=== PATIENT | female | born 1975 | race African-American/Black ===

== ENCOUNTER 2018-07-03 05:48 | Day surgery (SDC) | payer MEDICARE, MEDICAID ==
[~2018-07-03] VITALS: Ht 154.9 cm; Wt 89.8 kg
[~2018-07-03 05:48] MED LIST: CLON0.3T4 PO; GABA-529 PO; HYDR-4005 PO; HYDR100T31 PO; INS7030 SUBCUT; PRED10TA23 PO; REN800 PO
[2018-07-03 06:48] LABS: HCG SCREEN NEGATIVE
[2018-07-03] MEDS ORDERED: SODIUM CHLORIDE 0.9% 500 ML IV NR (06:50)
[2018-07-03] MEDS ORDERED: SKIN ADHESIVE 0.7 GM EA TOP ONE (07:38)
[2018-07-03] MEDS ORDERED: BUPIVACAINE HCL 0.5% (5MG/ML) 50ML ONE (07:39)
[2018-07-03] MEDS ORDERED: LIDOCAINE HCL 1% 20ML VIAL (Pyxis) INJ ONE (07:47)
[2018-07-03] MEDS ORDERED: SODIUM BICARBONATE 4% (2.4MEQ) 5ML VIAL IV ONE (07:49)
[2018-07-03] MEDS ORDERED: METHYLENE BLUE 50 MG/10 ML AMP IV ONE (08:55)
[2018-07-03] MEDS ORDERED: NORMAL SALINE 0.9% 10 ML SYR ONE (08:56)
[2018-07-03] MEDS ORDERED: MEPERIDINE HCL/PF 25MG/ML CPJ IV PRN (09:00)
[2018-07-03] MEDS ORDERED: ONDANSETRON HCL 4MG/2ML VIAL IV PRN (09:00)
[2018-07-03] MEDS ORDERED: HYDROMORPHONE HCL/PF 2MG/ML CPJ IV PRN (09:00)
[2018-07-03] MEDS ORDERED: LABETALOL 5MG/ML SYR 20 MG/4 ML SYRINGE IV PRN (09:00)
[2018-07-03] MEDS ORDERED: IPRATROPIUM/ALBUTEROL 0.5-3(2.5)MG/3ML NEB ONE (12:11)
[2018-07-03] MEDS ORDERED: HYDROCODONE/ACETAMINOPHEN 5/325MG TABLET PO PRN (13:15)
[2018-07-03 13:30] VITALS: BP 190/103
== END 2018-07-03 14:00 | disposition home or self-care (01) ==
LOC: OR 05:48
PROVIDERS: ATTEND Surgery
DX: C50.911 Malignant neoplasm of unspecified site of right female breast (principal); I13.11 Hypertensive heart and chronic kidney disease without heart failure, with stage 5 chronic kidney disease, or end stage renal disease; E11.22 Type 2 diabetes mellitus with diabetic chronic kidney disease; N18.6 End stage renal disease; J45.909 Unspecified asthma, uncomplicated; Z98.890 Other specified postprocedural states; Z99.2 Dependence on renal dialysis; Z79.899 Other long term (current) drug therapy; Z79.4 Long term (current) use of insulin; Z83.3 Family history of diabetes mellitus; Z82.49 Family history of ischemic heart disease and other diseases of the circulatory system
CPT/HCPCS: 19281; 36415; 38500; 78195; 80048; 82962; 84703; 88307; 88309; 88331; 94002; 94640; A4216; G0168; J3490; J7040; J7620; Q9968

== ENCOUNTER 2018-07-08 08:56 | Emergency (ER) | payer MEDICARE, MEDICAID ==
[~2018-07-08] VITALS: Ht 154.9 cm; Wt 89.0 kg
[2018-07-08] MEDS ORDERED: MORPHINE SULFATE 4 MG/ML CPJ (NOT FOR IM USE) IV STA (10:18)
[2018-07-08] MEDS ORDERED: ONDANSETRON HCL 4MG/2ML VIAL IV STA (10:18)
[2018-07-08 11:05] LABS: EOSINOPHILS % 4.3 % (0.0-5.0); HEMATOCRIT. 32.5 % (36.0-48.0); HEMOGLOBIN. 10.4 g/dL (12.0-16.0); LYMPHOCYTES % 9.9 % (20.0-50.0); MEAN CORPUSCULAR HEMOGLOBIN 30.1 pg (28.0-32.0); MEAN PLATELET VOLUME 7.5 fl (7.4-10.4); MONOCYTES % 7.5 % (2.0-8.0); NEUTROPHILS % 77.3 % (40.0-76.0); PLATELET 305 x1000/uL (130-400); RED BLOOD CELL COUNT 3.46 mill/uL (4.2-5.4); RED CELL DISTRIBUTION WIDTH 17.6 % (11.6-14.6)
[2018-07-08 11:12] LABS: INR 1.1; PROTHROMBIN TIME 10.8 sec (9.1-11.1)
[2018-07-08 11:13] LABS: CHLORIDE 103 mEq/L (98-107)
[2018-07-08 11:37] LABS: HCG SCREEN NEGATIVE
[2018-07-08] MEDS ORDERED: OXYCODONE HCL/ACETAMINOPHEN 5/325MG TABLET PO ONE (13:00)
[2018-07-08 13:16] VITALS: BP 108/70
== END 2018-07-08 13:19 | disposition home or self-care (01) ==
LOC: ER 11:44
DX: G89.18 Other acute postprocedural pain (principal); I13.2 Hypertensive heart and chronic kidney disease with heart failure and with stage 5 chronic kidney disease, or end stage renal disease; E11.22 Type 2 diabetes mellitus with diabetic chronic kidney disease; N18.6 End stage renal disease; N18.9 Chronic kidney disease, unspecified; D64.9 Anemia, unspecified; I50.9 Heart failure, unspecified; Z99.2 Dependence on renal dialysis; Z79.4 Long term (current) use of insulin
CPT/HCPCS: 36415; 71045; 80053; 84703; 85025; 85610; 96374; 96375; 99285; J2270; J2405; J7030

== ENCOUNTER 2018-07-12 12:13 | Emergency (ER) | payer MEDICARE, MEDICAID ==
[~2018-07-12] VITALS: Ht 154.9 cm; Wt 89.0 kg
[2018-07-12] MEDS ORDERED: MORPHINE SULFATE 4 MG/ML CPJ (NOT FOR IM USE) IV ONE ×2 (13:00→14:30)
[2018-07-12 13:40] LABS: BASOPHILS % 1.2 % (0.0-2.0); EOSINOPHILS % 5.3 % (0.0-5.0); HEMATOCRIT. 30.4 % (36.0-48.0); HEMOGLOBIN. 9.8 g/dL (12.0-16.0); LYMPHOCYTES % 12.1 % (20.0-50.0); MEAN CORPUSCULAR HEMOGLOBIN 30.1 pg (28.0-32.0); MEAN CORPUSCULAR VOLUME 93.3 fL (81.0-99.0); MEAN PLATELET VOLUME 7.8 fl (7.4-10.4); MONOCYTES % 7.6 % (2.0-8.0); NEUTROPHILS % 73.8 % (40.0-76.0); PLATELET 290 x1000/uL (130-400); RED BLOOD CELL COUNT 3.26 mill/uL (4.2-5.4); RED CELL DISTRIBUTION WIDTH 17.2 % (11.6-14.6)
[2018-07-12 13:42] LABS: CHLORIDE 103 mEq/L (98-107)
[2018-07-12 13:56] LABS: INR 1.1; PROTHROMBIN TIME 11.4 sec (9.1-11.1)
[2018-07-12 15:15] VITALS: BP 164/103
== END 2018-07-12 15:40 | disposition home or self-care (01) ==
LOC: ER 12:13
DX: R07.89 Other chest pain (principal); I13.2 Hypertensive heart and chronic kidney disease with heart failure and with stage 5 chronic kidney disease, or end stage renal disease; E11.22 Type 2 diabetes mellitus with diabetic chronic kidney disease; N18.6 End stage renal disease; I50.9 Heart failure, unspecified; Z99.2 Dependence on renal dialysis; Z79.4 Long term (current) use of insulin
CPT/HCPCS: 36415; 71045; 80053; 83880; 84484; 85025; 85610; 93005; 96374; 96376; 99285; J2270

== ENCOUNTER → 2018-09-01 | Day surgery (SDC) | payer MEDICARE, MEDICAID ==
[~2018-09-01] MED LIST changes: +LIDOCAINE HCL/EPINEPHRINE 1%-EPI 1:100,000 20 ML VIAL ONE; +SODIUM BICARBONATE 4% (2.4MEQ) 5ML VIAL IV ONE
== END | disposition home or self-care (01) ==
LOC: RAD 09:46
PROVIDERS: ATTEND Surgery
DX: D24.1 Benign neoplasm of right breast (principal); N60.91 Unspecified benign mammary dysplasia of right breast; I13.2 Hypertensive heart and chronic kidney disease with heart failure and with stage 5 chronic kidney disease, or end stage renal disease; E11.22 Type 2 diabetes mellitus with diabetic chronic kidney disease; N18.6 End stage renal disease; I50.9 Heart failure, unspecified; Z99.2 Dependence on renal dialysis; D64.9 Anemia, unspecified; Z79.4 Long term (current) use of insulin; Z79.899 Other long term (current) drug therapy; Z98.890 Other specified postprocedural states; Z82.49 Family history of ischemic heart disease and other diseases of the circulatory system
CPT/HCPCS: 19083; 88305; J3490; A4648

== ENCOUNTER 2018-11-18 09:19 | Emergency (ER) | payer MEDICARE, MEDICAID ==
[~2018-11-18] VITALS: Ht 165.1 cm; Wt 90.0 kg
[~2018-11-18 09:19] MED LIST changes: -LIDOCAINE HCL/EPINEPHRINE 1%-EPI 1:100,000 20 ML VIAL ONE; -SODIUM BICARBONATE 4% (2.4MEQ) 5ML VIAL IV ONE
[2018-11-18 10:42] LABS: HEMOGLOBIN. 13.8 g/dL (12.0-16.0); MEAN CORPUSCULAR HEMOGLOBIN 30.2 pg (28.0-32.0); MEAN CORPUSCULAR VOLUME 92.1 fL (81.0-99.0); MEAN PLATELET VOLUME 7.2 fl (7.4-10.4); PLATELET 320 x1000/uL (130-400); RED BLOOD CELL COUNT 4.57 mill/uL (4.2-5.4); RED CELL DISTRIBUTION WIDTH 17.8 % (11.6-14.6)
[2018-11-18 10:46] LABS: CHLORIDE 98 mEq/L (98-107)
[2018-11-18 10:51] LABS: INR 1.2; PARTIAL THROMBOPLASTIN TIME 29.2 sec (23.4-31.0); PROTHROMBIN TIME 11.7 sec (9.1-11.1)
[2018-11-18 10:52] LABS: PHOSPHORUS 2.3 mg/dL (2.5-4.9)
[2018-11-18 11:02] LABS: PLATELET ESTIMATE NORMAL
[2018-11-18] MEDS ORDERED: GENTAMICIN 80MG PREMIX 100 ML IV ONE (11:15)
[2018-11-18] MEDS ORDERED: VANCOMYCIN 1 G PREMIX 200 ML IV SCH (11:15)
[2018-11-18 11:22] LABS: HCG SCREEN NEGATIVE
[2018-11-18 14:01] VITALS: BP 124/84
== END 2018-11-18 14:07 | disposition left against medical advice (07) ==
LOC: ER 09:19 → EDBEDREQ 11:04 → EDBEDREQTM 11:04 → ENRESERV 11:40 → ER 14:07 → CANBEDREQ 16:24
DX: A41.9 Sepsis, unspecified organism (principal); G92 Toxic encephalopathy; I12.9 Hypertensive chronic kidney disease with stage 1 through stage 4 chronic kidney disease, or unspecified chronic kidney disease; E11.22 Type 2 diabetes mellitus with diabetic chronic kidney disease; N18.6 End stage renal disease; Z79.4 Long term (current) use of insulin; Z99.2 Dependence on renal dialysis
CPT/HCPCS: 36415; 70450; 71045; 80053; 82962; 83605; 83735; 84100; 84484; 84703; 85025; 85610; 85730; 87040; 93005; 96365; 96367; 99284; J1580; J3370

== ENCOUNTER 2019-03-05 18:53 | Inpatient (IN) | payer MEDICARE, MEDICAID ==
[~2019-03-05] VITALS: Ht 167.6 cm; Wt 86.7 kg
[2019-03-05] MEDS ORDERED: SODIUM CHLORIDE 0.9% 1,000 ML IV ONE (19:45)
[2019-03-05] MEDS ORDERED: PIPERACILLIN/TAZ 3.375G PREMIX 50 ML IV ONE (19:45)
[2019-03-05] MEDS ORDERED: VANCOMYCIN 1 G PREMIX 200 ML IV SCH (19:45)
[2019-03-05 20:25] LABS: BASOPHILS % 0.9 % (0.0-2.0); EOSINOPHILS % 2.1 % (0.0-5.0); HEMATOCRIT. 36.8 % (36.0-48.0); HEMOGLOBIN. 12.5 g/dL (12.0-16.0); MEAN PLATELET VOLUME 8.2 fl (7.4-10.4); MONOCYTES % 5.9 % (2.0-8.0); NEUTROPHILS % 78.1 % (40.0-76.0); PLATELET 258 x1000/uL (130-400); RED BLOOD CELL COUNT 3.91 mill/uL (4.2-5.4)
[2019-03-05 20:28] LABS: CHLORIDE 94 mEq/L (98-107); INR 1.1; PARTIAL THROMBOPLASTIN TIME 32.9 sec (23.4-31.0)
[2019-03-05] MEDS ORDERED: INSULIN REGULAR (HUMULIN R) UD 100 UNITS/ML SYR IV NR (21:00)
[2019-03-05] MEDS ORDERED: SODIUM POLYSTYRENE SULFONATE 15 G/60 ML BOT PO NR (21:00)
[2019-03-05] MEDS ORDERED: DEXTROSE 50% WATER 50ML SYRINGE IV NR (21:00)
[2019-03-05] MEDS ORDERED: CALCIUM CHLORIDE 1,000 MG in DEXT 5% WATER 90 ML IV NR (21:00)
[2019-03-05] MEDS ORDERED: NALOXONE HCL 0.4 MG/ML 1ML VIAL IV ONE (21:30)
[2019-03-05] MEDS ORDERED: INSULIN REGULAR (HUMULIN R) 300UNITS/3ML IV NR (21:45)
[2019-03-05] MEDS ORDERED: ONDANSETRON HCL 4MG/2ML INJ IV PRN (23:15)
[2019-03-05] MEDS ORDERED: DOCUSATE SODIUM 100MG CAPSULE PO PRN (23:15)
[2019-03-05] MEDS ORDERED: HYDROCODONE/ACETAMINOPHEN 5/325MG TABLET PO PRN (23:15)
[2019-03-05] MEDS ORDERED: MAGNESIUM/ALUMINUM HYDROXIDE/SIMETHICONE 30ML UDC PO PRN (23:15)
[2019-03-05] MEDS ORDERED: CLONIDINE 0.1MG TABLET PO PRN (23:15)
[2019-03-05] MEDS ORDERED: ACETAMINOPHEN 325MG TABLET PO PRN (23:15)
[2019-03-05] MEDS ORDERED: GUAIFENESIN 200MG/10ML SUGAR FREE UDC PO PRN (23:15)
[2019-03-06 00:30] VITALS: BP 153/53
[2019-03-06] MEDS ORDERED: SODIUM BICARBONATE 8.4% 1 MEQ/ML 50ML SYR IV NR (00:45)
[2019-03-06] MEDS ORDERED: DEXTROSE 50% WATER 50ML SYRINGE IV NR (00:45)
[2019-03-06] MEDS ORDERED: INSULIN REGULAR (HUMULIN R) UD 100 UNITS/ML SYR IV NR (02:00)
[2019-03-06] MEDS ORDERED: CALCIUM CHLORIDE 1GM/10ML SYR IV NR (02:00)
[2019-03-06] MEDS ORDERED: DEXTROSE 50% WATER 50ML SYRINGE IV PRN (03:15)
[2019-03-06 04:00] VITALS: BP 109/88
[2019-03-06 06:25] LABS: BASOPHILS % 0.6 % (0.0-2.0); EOSINOPHILS % 2.6 % (0.0-5.0); HEMATOCRIT. 31.4 % (36.0-48.0); HEMOGLOBIN. 10.6 g/dL (12.0-16.0); LYMPHOCYTES % 12.7 % (20.0-50.0); MEAN CORPUSCULAR HEMOGLOBIN 31.3 pg (28.0-32.0); MEAN CORPUSCULAR VOLUME 92.6 fL (81.0-99.0); MEAN PLATELET VOLUME 7.5 fl (7.4-10.4); MONOCYTES % 10.3 % (2.0-8.0); NEUTROPHILS % 73.8 % (40.0-76.0); PLATELET 198 x1000/uL (130-400); RED BLOOD CELL COUNT 3.39 mill/uL (4.2-5.4); RED CELL DISTRIBUTION WIDTH 14.5 % (11.6-14.6)
[2019-03-06] MEDS: BLOOD SUGAR DIAGNOSTIC STRIP TEST SCH ×4 (06:34→20:40)
[2019-03-06 06:39] LABS: CHLORIDE 101 mEq/L (98-107)
[2019-03-06] MEDS: INSULIN LISPRO 100 UNITS/ML SUBCUT SCH ×4 (07:50→20:40)
[2019-03-06] MEDS: AMLODIPINE 10MG TABLET PO SCH (08:28)
[2019-03-06 16:00] VITALS: BP 108/66
[2019-03-06] MEDS: SILVER SULFADIAZINE 1% CREAM 25GM TOP SCH (18:30)
[2019-03-06 20:21] VITALS: BP 121/63
[2019-03-07 00:35] VITALS: BP 125/66
[2019-03-07 04:36] VITALS: BP 113/54
[2019-03-07 07:19] LABS: BASOPHILS % 1.1 % (0.0-2.0); EOSINOPHILS % 5.4 % (0.0-5.0); HEMATOCRIT. 33.2 % (36.0-48.0); LYMPHOCYTES % 16.3 % (20.0-50.0); MEAN CORPUSCULAR HEMOGLOBIN 31.1 pg (28.0-32.0); MEAN CORPUSCULAR VOLUME 93.4 fL (81.0-99.0); MEAN PLATELET VOLUME 7.6 fl (7.4-10.4); MONOCYTES % 8.3 % (2.0-8.0); NEUTROPHILS % 68.9 % (40.0-76.0); PLATELET 207 x1000/uL (130-400); RED BLOOD CELL COUNT 3.55 mill/uL (4.2-5.4); RED CELL DISTRIBUTION WIDTH 14.7 % (11.6-14.6)
[2019-03-07] MEDS: INSULIN LISPRO 100 UNITS/ML SUBCUT SCH ×3 (07:39→16:51)
[2019-03-07] MEDS: BLOOD SUGAR DIAGNOSTIC STRIP TEST SCH ×3 (07:39→16:51)
[2019-03-07 08:00] VITALS: BP 122/69
[2019-03-07] MEDS ORDERED: CINACALCET HCL 90MG TABLET PO SCH (09:00)
[2019-03-07] MEDS: AMLODIPINE 10MG TABLET PO SCH (09:00)
[2019-03-07] MEDS: SILVER SULFADIAZINE 1% CREAM 25GM TOP SCH (09:00)
[2019-03-07 09:24] LABS: PHOSPHORUS 8.5 mg/dL (2.5-4.9)
[2019-03-07] MEDS ORDERED: DIPHENHYDRAMINE 50MG/ML VIAL IV PRN (11:00)
[2019-03-07 12:00] VITALS: BP 147/98
[2019-03-07] MEDS: LANTHANUM CARBONATE 500MG CHEW TABLET PO SCH ×2 (12:52→16:49)
[2019-03-07 16:00] VITALS: BP 164/93
== END 2019-03-07 18:55 | disposition left against medical advice (07) | DRG 291 ==
LOC: ER 18:53 → 6WST 20:54 → EDBEDREQ 20:56 → EDBEDREQTM 20:56 → ENRESERV 23:05 → SUPCPDRO 23:11 → 6WST 03-06 00:45
PROVIDERS: ADMIT Hospitalist; ATTEND Hospitalist
PROC: 5A1D70Z Performance of Urinary Filtration, Intermittent, Less than 6 Hours Per Day (ICD-10-PCS; principal; 2019-03-05)
PROC: 5A1D70Z Performance of Urinary Filtration, Intermittent, Less than 6 Hours Per Day (ICD-10-PCS; 2019-03-06)
DX: I13.2 Hypertensive heart and chronic kidney disease with heart failure and with stage 5 chronic kidney disease, or end stage renal disease (principal); I50.33 Acute on chronic diastolic (congestive) heart failure; J96.00 Acute respiratory failure, unspecified whether with hypoxia or hypercapnia; N18.6 End stage renal disease; E46 Unspecified protein-calorie malnutrition; I69.359 Hemiplegia and hemiparesis following cerebral infarction affecting unspecified side; L97.919 Non-pressure chronic ulcer of unspecified part of right lower leg with unspecified severity; N25.81 Secondary hyperparathyroidism of renal origin; G93.49 Other encephalopathy; E87.5 Hyperkalemia; C50.911 Malignant neoplasm of unspecified site of right female breast; D64.9 Anemia, unspecified; E11.21 Type 2 diabetes mellitus with diabetic nephropathy; E11.22 Type 2 diabetes mellitus with diabetic chronic kidney disease; E11.621 Type 2 diabetes mellitus with foot ulcer; M16.0 Bilateral primary osteoarthritis of hip; J45.909 Unspecified asthma, uncomplicated; E66.01 Morbid (severe) obesity due to excess calories; E83.39 Other disorders of phosphorus metabolism; E83.59 Other disorders of calcium metabolism; G89.29 Other chronic pain; I25.10 Atherosclerotic heart disease of native coronary artery without angina pectoris; Z53.21 Procedure and treatment not carried out due to patient leaving prior to being seen by health care provider; E89.2 Postprocedural hypoparathyroidism; Z99.2 Dependence on renal dialysis; Z68.30 Body mass index [BMI] 30.0-30.9, adult; Z91.15 Patient's noncompliance with renal dialysis; Z91.19 Patient's noncompliance with other medical treatment and regimen
CPT/HCPCS: 36415; 71045; 80048; 82140; 82962; 83605; 83735; 83880; 83970; 84100; 84132; 84484; 93005; 93970; 96365; 96366; 96367; 99291; J1200; J1815; J2310; J2543; J3370; J3490; J7030; J7060

== ENCOUNTER 2019-09-01 09:56 | Emergency (ER) | payer MEDICARE, MEDICAID ==
[~2019-09-01] VITALS: Ht 167.6 cm; Wt 81.0 kg
[2019-09-01] MEDS ORDERED: SODIUM CHLORIDE 0.9% 1000ML BAG (SEPSIS BOLUS) IV ONE (10:15)
[2019-09-01 10:26] LABS: BASOPHILS % 1.1 % (0.0-2.0); EOSINOPHILS % 2.8 % (0.0-5.0); HEMATOCRIT. 40.5 % (36.0-48.0); HEMOGLOBIN. 13.4 g/dL (12.0-16.0); LYMPHOCYTES % 13.2 % (20.0-50.0); MEAN CORPUSCULAR HEMOGLOBIN 32.4 pg (28.0-32.0); MEAN CORPUSCULAR VOLUME 98.1 fL (81.0-99.0); MEAN PLATELET VOLUME 7.8 fl (7.4-10.4); NEUTROPHILS % 76.9 % (40.0-76.0); PLATELET 281 x1000/uL (130-400); RED BLOOD CELL COUNT 4.13 mill/uL (4.2-5.4); RED CELL DISTRIBUTION WIDTH 16.5 % (11.6-14.6)
[2019-09-01 10:34] LABS: CHLORIDE 101 mEq/L (98-107)
[2019-09-01 10:35] LABS: PROTHROMBIN TIME 10.3 sec (9.6-11.0)
[2019-09-01 10:40] LABS: HCG SCREEN NEGATIVE
[2019-09-01] MEDS ORDERED: ACETAMINOPHEN 325MG TABLET PO ONE (10:45)
[2019-09-01] MEDS ORDERED: LEVOFLOXACIN 750MG PREMIX 150 ML IV ONE (12:00)
[2019-09-01 13:40] VITALS: BP 108/64
== END 2019-09-01 13:44 | disposition left against medical advice (07) ==
LOC: ER 10:02
DX: I95.9 Hypotension, unspecified (principal); I13.2 Hypertensive heart and chronic kidney disease with heart failure and with stage 5 chronic kidney disease, or end stage renal disease; E11.22 Type 2 diabetes mellitus with diabetic chronic kidney disease; N18.6 End stage renal disease; I50.9 Heart failure, unspecified; Z99.2 Dependence on renal dialysis; Z79.4 Long term (current) use of insulin
CPT/HCPCS: 36415; 71045; 80053; 83605; 84145; 84484; 84703; 85025; 85610; 85730; 87040; 93005; 96361; 96365; 96366; 99284; J1956; J7030